=== PATIENT | female | born 1990 | race Caucasian/White ===

== ENCOUNTER → 2021-06-04 | Emergency (ER) | payer OTHER ==
[~2021-06-04] VITALS: Ht 162.6 cm; Wt 154.2 kg
[2021-06-04 17:36] VITALS: BP 132/82
== END ==
LOC: ER 17:08
DX: R42 Dizziness and giddiness (principal); H53.8 Other visual disturbances; R51.9 Headache, unspecified; Z53.21 Procedure and treatment not carried out due to patient leaving prior to being seen by health care provider